=== PATIENT | male | born 1950 ===

== ENCOUNTER 2017-02-11 11:29 | Emergency (ER) | payer OTHER ==
[2017-02-11 11:46] VITALS: TEMP 97.3
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
--- NOTE | 2017-02-11 12:51 | CT ---
PROCEDURE: CT HEAD WITHOUT CONTRAST. HISTORY: r/o bleed COMPARISON: None available. TECHNIQUE: Axial computed tomography images were obtained through the head/brain without intravenous contrast. Radiation dose: Total exam DLP = 892.99 mGy-cm. This CT exam was performed using one or more of the following dose reduction techniques: Automated exposure control, adjustment of the mA and/or kV according to patient size, and/or use of iterative reconstruction technique. FINDINGS: HEMORRHAGE: No intracranial hemorrhage. BRAIN: No mass effect or edema. There is minimal periventricular white matter lucency consistent with chronic microvascular ischemic change. . VENTRICLES: Unremarkable. No hydrocephalus. CALVARIUM: Unremarkable. PARANASAL SINUSES: Unremarkable as visualized. No significant inflammatory changes. MASTOID AIR CELLS: Unremarkable as visualized. No inflammatory changes. OTHER FINDINGS: None. IMPRESSION: No intracranial mass, hemorrhage or evidence of acute infarct. Minimal chronic white matter ischemic change. .
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
[2017-02-11 13:36] VITALS: RESP 16
[2017-02-11 14:45] VITALS: BP 154/90; PULSE 78
[2017-02-11 14:46] VITALS: O2SAT 98
== END 2017-02-11 14:55 | disposition home or self-care (01) ==
LOC: H.ER 11:29
DX: I10 Essential (primary) hypertension (principal); V49.40XA Driver injured in collision with unspecified motor vehicles in traffic accident, initial encounter